=== PATIENT | female | born 2000 | race Caucasian/White ===

== ENCOUNTER 2020-09-03 19:28 | Emergency (ER) | payer OTHER, SELFPAY ==
[2020-09-03 19:35] VITALS: BP 126/96; PULSE 102; RESP 16; TEMP 36.9; O2SAT 100
[2020-09-03] MEDS: predniSONE 20 MG TABLET 40 MG PO (20:14)
[2020-09-03] MEDS: FAMOTIDINE 20 MG TABLET PO (20:14)
--- NOTE | 2020-09-03 20:49 | ED.GENADULT ---
HPI - General Adult General Chief complaint: Allergic Reaction Stated complaint: Allergic reaction Time Seen by Provider: 09/03/20 19:45 Source: patient, family and RN notes reviewed Mode of arrival: ambulatory Limitations: no limitations History of Present Illness HPI narrative: Patient is a 20-year-old female who presents concern for allergic reaction secondary to a food product that she consumed that she was concerned may trigger her not allergy patient took 50 mg of Benadryl. Patient notes that she had had itching of the face but that has resolved at this time she has no symptoms on arrival does not appear distressed Related Data Allergies Allergy/AdvReac Type Severity Reaction Status Date / Time tree nut Allergy Severe Anaphylactic Verified 09/03/20 19:41 Shock Review of Systems Review of Systems: All systems reviewed & are unremarkable except as noted in HPI and below PMFSH Past Medical History Medical History (Updated 09/03/20 @ 20:55 by Arron Kiran PA-C) Obesity Surgical History Surgical History (Updated 09/03/20 @ 20:50 by Arron Kiran PA-C) History of orthopedic surgery Social History Social History (Updated 09/03/20 @ 20:50 by Arron Kiran PA-C) Smoking status: Never smoker Exam Narrative: Exam Narrative: GENERAL: Well-appearing, well-nourished, and in no acute distress. HEAD: Normocephalic, atraumatic. EYES: PERRLA and EOMI. ENT: Nares clear, no rhinorrhea or epistaxis. Mucous membranes moist. Oropharynx without tonsillar hypertrophy exudate or other lesions. NECK: Supple. No adenopathy or masses. No stridor CHEST: Clear to auscultation. No respiratory distress. No wheezes rales or rhonchi HEART: Regular rate and rhythm. No murmur heard. EXTREMITIES: Normal range of motion. No edema. SKIN: Warm, dry, no rash. NEURO: No focal deficits. Alert and oriented x3. Cranial nerves II through XII grossly intact PSYCH: Normal mood and affect. Course Course Emergency Course: Patient in the room no distress aware of case findings treatment plan diagnosis agreeing to follow-up as instructed no concerning findings in her evaluation Vital Signs Vital signs: Vital Signs Temperature 98.4 F 09/03/20 19:35 Pulse Rate 102 H 09/03/20 19:35 Respiratory Rate 16 09/03/20 19:35 Blood Pressure 126/96 H 09/03/20 19:35 Pulse Oximetry 100 09/03/20 19:35 Temperature 98.4 F 09/03/20 19:35 Pulse Rate 102 H 09/03/20 19:35 Respiratory Rate 16 09/03/20 19:35 Blood Pressure 126/96 H 09/03/20 19:35 Pulse Oximetry 100 09/03/20 19:35 Medical Decision Making MDM Narrative Medical decision making narrative: Patient with possible allergic reaction no concerning findings will be discharged home provided with outpatient follow-up ABCs and vital signs intact and stable Vital Signs Vital Signs: Vital Signs Temperature 98.4 F 09/03/20 19:35 Pulse Rate 102 H 09/03/20 19:35 Respiratory Rate 16 09/03/20 19:35 Blood Pressure 126/96 H 09/03/20 19:35 Pulse Oximetry 100 09/03/20 19:35 Temperature 98.4 F 09/03/20 19:35 Pulse Rate 102 H 09/03/20 19:35 Respiratory Rate 16 09/03/20 19:35 Blood Pressure 126/96 H 09/03/20 19:35 Pulse Oximetry 100 09/03/20 19:35 Discharge Plan Discharge Clinical Impression: Allergic reaction Patient Disposition: Home, Self-Care Condition: Stable Instructions: Antibiotic Form, Allergies (ED) Additional Instructions: Follow up with your primary care provider within 3-5 days to set up for reevaluation. Go to ER for shortness of breath, difficulty breathing, chest pain, fever/chills, weakness, nauseau/vomitting, tongue swelling or throat tightening etc. or any other concerns. Stay well-hydrated Take any prescribed medications as directed. Follow patient education sheets If you do not have a drug allergy to tylenol or motrin and can tolerate it then take tylenol or motrin as needed for discomfort
[2020-09-03 21:08] VITALS: BP 122/80; PULSE 86; RESP 16; O2SAT 100
== END 2020-09-03 21:08 | disposition home or self-care (01) ==
PROVIDERS: Emergency Provider Emergency Medicine; PCP Pediatrics
DX: T78.40XA Allergy, unspecified, initial encounter (principal)
CPT/HCPCS: 99283; A9270; J7512

== ENCOUNTER 2021-10-12 13:34 | Emergency (ER) | payer OTHER, SELFPAY ==
--- NOTE | ~2021-10-12 | XR_ITS ---
EXAMINATION: XR chest 1V portable 10/12/2021 14:44 INDICATION: Covid 19 PROCEDURE: AP portable chest COMPARISON: 10/09/2016 FINDINGS: The lungs are clear. The cardiomediastinal silhouette is within normal limits. There are no pleural effusions. There is no pneumothorax suspected. IMPRESSION: 1: NO ACUTE CARDIOPULMONARY DISEASE. Reviewed, dictated and finalized at location A.
[2021-10-12 13:44] VITALS: BP 148/92; PULSE 164; RESP 20; TEMP 38.2; O2SAT 93
--- NOTE | 2021-10-12 14:49 | ED.FEVER ---
HPI - Fever General Chief Complaint: Fever Stated Complaint: fever, covid + Time Seen by Provider: 10/12/21 13:39 History of Present Illness HPI Narrative: 21-year-old female presents to the emergency room for evaluation of a fever. Patient states fever of T-max 104.0. Patient states she was recently diagnosed with COVID. Took Tylenol x1 and he did not Related Data Home Medications Medication Instructions Recorded Confirmed atomoxetine 60 mg capsule 60 mg PO DAILY 10/12/21 Allergies Allergy/AdvReac Type Severity Reaction Status Date / Time tree nut Allergy Severe Anaphylactic Verified 10/12/21 13:51 Shock Review of Systems Review of Systems: CONSTITUTIONAL: Reports fevers EYES: Denies visual changes, redness, or discharge. ENT: Denies rhinorrhea, congestion, sore throat, or otalgia. CARDIOVASCULAR: Denies chest pain, palpitations, or edema. RESPIRATORY: Denies cough or dyspnea. GASTROINTESTINAL: Denies abdominal pain, nausea, vomiting, or diarrhea. GENITOURINARY: Denies dysuria or hematuria. SKIN: Denies rash or itching. MUSCULOSKELETAL: Reports body aches NEUROLOGIC: Denies headache, numbness, dizziness, or weakness. PSYCHIATRIC: Denies anxiety or depression. [facility] Past Medical History Medical History Obesity Surgical History Surgical History History of orthopedic surgery Social History Social History Smoking status: Never smoker Exam Narrative: GENERAL: Ill-appearing, well-nourished, no physical limitations, and in no acute distress. HEAD: Normocephalic, atraumatic. EYES: Conjunctivae normal, PERRLA and EOMI. ENT: External nose normal, Nares clear, no rhinorrhea or epistaxis. Mucous membranes moist. Oropharynx without tonsillar hypertrophy exudate or other lesions. External ears normal, bilateral TMs normal bilaterally NECK: Supple. No adenopathy or masses. CHEST: Clear to auscultation. No respiratory distress. No wheezes rales or rhonchi. HEART: Regular rate and rhythm. No murmur heard. Normal peripheral pulses. ABDOMEN: Soft, nontender, nondistended, normal active bowel sounds. BACK: No CVA tenderness; No cervical/thoracic/lumbar tenderness, step-offs, bony abnormality; FROM EXTREMITIES: Normal range of motion. No edema. No clubbing or cyanosis SKIN: Warm, dry, no rash. No noted wounds NEURO: No focal deficits. Alert and oriented x3. MAEW. CN's II-XI intact bilaterally, normal gait PSYCH: Cooperative. Normal mood and affect. Course Vital Signs Vital signs: Vital Signs Temperature 38.2 C H 10/12/21 13:44 Pulse Rate 164 H 10/12/21 13:44 Respiratory Rate 20 10/12/21 13:44 Blood Pressure 148/92 H 10/12/21 13:44 Pulse Oximetry 93 10/12/21 13:44 Oxygen Delivery Room Air 10/12/21 13:44 Temperature 37.2 C 10/12/21 16:20 Pulse Rate 120 H 10/12/21 16:20 Respiratory Rate 14 10/12/21 16:20 Blood Pressure 123/88 10/12/21 15:00 Pulse Oximetry 97 10/12/21 16:20 Oxygen Delivery Room Air 10/12/21 13:44 Discharge Plan Discharge Clinical Impression: COVID Patient Disposition: Home, Self-Care Condition: Stable Instructions: Antibiotic Form, Fever in Adults (ED), COVID-19 (Coronavirus Disease 2019) (ED) Additional Instructions: Alternate Tylenol and ibuprofen every 3 hours. Strongly encourage you to continue to hydrate yourself. Prescriptions: No Action atomoxetine 60 mg Capsule 60 mg PO DAILY Follow-up/Referrals: PHYSICIAN,MACHINE II COREMAKER [Primary Care Provider] - Time of Disposition: 15:19
[2021-10-12 15:00] VITALS: BP 123/88; PULSE 125; RESP 20; O2SAT 98
[2021-10-12] MEDS: SODIUM CHLORIDE 0.9% IV 1,000 ML 999 ML IV CONT (15:10)
[2021-10-12] MEDS: IBUPROFEN 600 MG TABLET PO (15:12)
[2021-10-12] MEDS: ACETAMINOPHEN 500 MG TABLET 1000 MG PO (15:43)
[2021-10-12 16:20] VITALS: PULSE 120; RESP 14; TEMP 37.2; O2SAT 97
== END 2021-10-12 16:20 | disposition home or self-care (01) ==
LOC: ANHED 15:45
PROVIDERS: Emergency Provider Nurse Practitioner Family
DX: U07.1 COVID-19 (principal)
CPT/HCPCS: 71045; 96360; 99283; A9270; J7030

== ENCOUNTER 2022-10-03 08:12 | Outpatient (CLI) | payer OTHER, SELFPAY ==
--- NOTE | 2022-10-07 18:54 | WPDHOMESLEEP ---
Sleep Study - Home Unattended Date of Study: 10/03/22 Ordering Provider: Olga Banuelos NP Interpreting Provider: Sandi Long, DO Home Sleep Study Type: Watch PAT Height: 1.52 m Weight: 129.274 kg Body Mass Index: 55.6 Neck Circumference (inches): 15.25 Daniel: 8 Reason for Sleep Study Chronic fatigue Sleep History The patient is a 22-year-old female with ADHD, allergies, PCOS and morbid obesity that had a sleep study ordered by her primary care physician for evaluation of sleep apnea. The patient rarely awakens from sleep short of breath. She rarely awakens at night with heartburn, belching or cough. She frequently snores but it is never loud enough that anyone complaints. She frequently has trouble sleeping when she has a cold. He denies waking up gasping for air throughout the night. She denies having breathing problems at night observed by herself or others. She occasionally sweats excessively at night. He denies having heart palpitations or irregular heartbeats during the night. She frequently falls asleep during the day but never while driving. She denies cataplexy. She occasionally has trouble at school or work due to sleepiness. She rarely feels unable to move while waking up or falling asleep. She rarely experiences vivid dreamlike scenes upon awakening or falling asleep. She denies feeling afraid of going to sleep. She rarely has nightmares. She frequently remembers her dreams. She denies having thoughts racing through her mind. She denies feeling sad or depressed. She rarely has anxiety. She denies having muscular tension. She denies noticing parts of her body jerk. She denies kicking during the night. She denies having crawling and aching feelings in her legs and denies having leg pain during the night. He denies grinding her teeth during sleep and denies awakening with morning jaw pain. She is rarely bothered by pain during the day and rarely awakened by pain during the night. He occasionally wakes up feeling stiff in the morning. She rarely wakes up with sore or achy muscles. She rarely wakes up with pain in the neck, spine or other joints. She goes to bed at 11:30 p.m. on weekdays and between 11:00 p.m. to midnight on the weekends. It takes her 10 minutes to fall asleep. She wakes up 1-2 times throughout the night to urinate and is able to fall back asleep within 5 minutes. She wakes up at 8:30 a.m. on weekdays and between 930-10 a.m. on the weekends. She typically gets 7-9 hours of sleep per night. She will stay in bed for 15 minutes after waking up on weekdays and 1 hour on the weekends. She currently lives with her partner. She does not consume any caffeinated beverages within 2 hours of bedtime. She does not engage in physical exercise before bedtime. She denies reading but will watch television before falling asleep. She will take naps in the afternoon or the evening but they are not refreshing. She consumes up to 1 caffeinated beverage per day. She will have 1 alcoholic beverage per week. She denies tobacco and recreational drug use. [facility] Past Medical History Medical History ADHD Allergies Encounter to establish care Hypersomnia Morbid obesity with BMI of 50.0-59.9, adult Obesity PCOS (polycystic ovarian syndrome) Screening for diabetes mellitus Snoring Surgical History Surgical History History of orthopedic surgery Family History Family History Mother Asthma Depression Anxiety Thyroid disease Father Diabetes mellitus Anxiety Depression Heart disease Social History Social History Smoking status: Never smoker Alcohol intake: current Alcohol use details: Occasionally Substance use: never Substance use type: does not use
[2022-10-07 18:56] VITALS: BMI 55.6
== END 2022-10-04 11:40 | disposition home or self-care (01) ==
LOC: ANHCSM 08:12
PROVIDERS: PCP Nurse Practitioner Family; Visit Provider Nurse Practitioner Family
DX: G47.10 Hypersomnia, unspecified (principal); G47.33 Obstructive sleep apnea (adult) (pediatric)
CPT/HCPCS: 95800

== ENCOUNTER 2023-02-19 12:00 | Outpatient (CLI) | payer OTHER, SELFPAY ==
--- NOTE | 2023-02-19 12:17 | ECG_ITS ---
Measurements Intervals [place] Rate: 82 P: 45 GA: 142 QRS: 12 QRSD: 82 T: 30 QT: 334 QTc: 391 Interpretive Statements SINUS RHYTHM WITH SINUS ARRHYTHMIA LOW-VOLTAGE QRS IN PRECORDIAL LEADS BORDERLINE ECG NO PREVIOUS ECG AVAILABLE FOR COMPARISON Electronically Signed On 02-19-2023 17:16:54 [employer] by Elvin Cheema M.D.
--- NOTE | 2023-02-23 13:15 | WPDHOLTEREM ---
Holter/Event Monitor Holter/Event Monitor Date of procedure: 02/19/23 Holter/Event Procedure: 24 Hr Holter Monitor Indications: Tachycardia Conclusion: 1. 24 hour holter monitor on 02/19/23. 2. Underlying rhythm is sinus rhythm. HR range 56-176 bpm; average HR 99 bpm. HR at 176 bpm was at 00:30. 3. No premature supraventricular complexes. No supraventricular tachycardia. 4. There are 5 premature ventricular complexes. No ventricular tachycardia. 5. No sinoatrial or atrioventricular blocks. No significant pauses greater than 2 seconds. 6. Patient reports symptom of dizziness which demonstrate sinus tachycardia at 169 bpm.
== END 2023-02-19 12:01 | disposition home or self-care (01) ==
LOC: ANHCARD 12:01
PROVIDERS: PCP Nurse Practitioner Family; Visit Provider Nurse Practitioner Family
DX: R00.0 Tachycardia, unspecified (principal); R42 Dizziness and giddiness; R03.0 Elevated blood-pressure reading, without diagnosis of hypertension; R94.31 Abnormal electrocardiogram [ECG] [EKG]
CPT/HCPCS: 93005; 93225; 93226